=== PATIENT | female | born 1985 | race Caucasian/White ===

== ENCOUNTER 2018-05-15 18:09 | Emergency (ER) | payer MEDICAID ==
[~2018-05-15] VITALS: Ht 160 cm; Wt 74.8 kg
[2018-05-15 18:14] VITALS: Ht 160 cm; Wt 74.8 kg
[2018-05-15 19:46] VITALS: BP 118/76
== END 2018-05-15 19:43 | disposition home or self-care (01) ==
LOC: ED 18:09
DX: L60.0 Ingrowing nail (principal)
CPT/HCPCS: J2001